=== PATIENT | male | born 1930 | race Caucasian/White ===

== ENCOUNTER 2016-07-05 23:25 | Emergency (ER) | payer MEDICARE ==
[2016-07-05 20:09] LABS: ASCORBIC ACID (UR NOT ORDER) NEG (NEG); BILIRUBIN, URINE NEGATIVE (NEG); ER URINALYSIS TAT 0 Hrs 21 Mins; KETONE, URINE NEGATIVE (NEG); LEUKOCYTE ESTERASE(NOT OR LARGE (NEG); NITRITE (URINE) NEG (NEG)
[2016-07-05 20:10] LABS: WBC (NOT ORDERED) (RFLEX) > 182 (0-5)
[2016-07-05 20:12] LABS: BASOPHILS 0.2 %; BASOPHILS ABSOLUTE 0.01 10/3/uL (0.0-0.16); EOSINOPHILS 2.2 %; EOSINOPHILS ABSOLUTE 0.11 10/3/uL (0.0-0.53); HEMATOCRIT 40.9 % (40.0-51.0); HEMOGLOBIN 14.1 g/dL (13.6-17.8); IMMATURE GRANULOCYTES 0.2 %; IMMATURE GRANULOCYTES ABSOLUTE 0.01 10/3/uL (0.0-0.11); LYMPHOCYTES 26.9 %; LYMPHOCYTES ABSOLUTE 1.36 10/3/uL (0.67-4.30); MEAN CORPUS HGB CONC 34.5 g/dL (32.0-36.0); MEAN CORPUSCULAR HEMOGLOB 32.2 pg (26.0-34.0); MEAN CORPUSCULAR VOLUME 93.4 fL (80-100); MEAN PLATELET VOLUME 9.5 fL (9.2-13.0); MONOCYTES 9.1 %; MONOCYTES ABSOLUTE 0.46 10/3/uL (0.21-1.20); NEUTROPHILS 61.4 %; PLATELET COUNT 158 10/3/uL (150-400); RBC DISTRIBUTION WIDTH 13.5 % (12.0-16.0); RED CELL COUNT 4.38 10/6/uL (4.7-6.1)
[2016-07-05 20:13] LABS: ER CBC TAT 0 Hrs 01 Mins; MANUAL DIFF NO %; WHITE BLOOD CELLS 5.1 10/3/uL (4.5-10.5)
[2016-07-05 20:33] LABS: BUN (BLOOD UREA NITROGEN) 24 MG/DL (6-23); CALCIUM, SERUM 8.5 MG/DL (8.5-10.4); CHLORIDE, SERUM 109 MMOL/L (96-112); CREATININE 1.48 MG/DL (0.70-1.30); GFR AFRICAN AMERICAN 49 ML/MIN (>=60); GFR NON AFRICAN AMERICAN 43 ML/MIN (>=60); GLUCOSE, SERUM 97 MG/DL (60-99); POTASSIUM, SERUM 3.8 MMOL/L (3.5-5.3); SODIUM, SERUM 144 MMOL/L (135-148)
[2016-07-05 20:34] LABS: CO2 (CARBON DIOXIDE) 29 MMOL/L (24-34)
[~2016-07-05 23:25] MED LIST: ALTACE10 MG PO; ASAB PO; CARTIA XT300 MG/24 PO; CIP5 PO; CRESTOR10 PO; FLOMAX4 PO; HYDROCORT12 EX; PROTONIX PO; SINGULAIR1 PO; VITAMIN D1000 UNI1 PO; VOLTAREN1 % TOP; ZETIA PO; [UNRECOGNIZED DRUG - OTHER] PO
== END 2016-07-06 02:09 | disposition home or self-care (01) ==
LOC: ER 23:25
PROVIDERS: Emergency Medicine
DX: N39.0 Urinary tract infection, site not specified (principal); I25.2 Old myocardial infarction; I12.9 Hypertensive chronic kidney disease with stage 1 through stage 4 chronic kidney disease, or unspecified chronic kidney disease; N18.9 Chronic kidney disease, unspecified; K21.9 Gastro-esophageal reflux disease without esophagitis; Z85.46 Personal history of malignant neoplasm of prostate; Z87.891 Personal history of nicotine dependence; Z79.82 Long term (current) use of aspirin; Z79.899 Other long term (current) drug therapy
CPT/HCPCS: 74176; 80048; 81001; 85025; 87077; 87086; 87186; 96374; 99284